=== PATIENT | female | born 1990 | race Caucasian/White ===

== ENCOUNTER 2020-07-27 01:47 | Emergency (ER) | payer OTHER ==
[~2020-07-27] VITALS: Ht 160 cm; Wt 78.1 kg
[2020-07-27 01:58] VITALS: Ht 160 cm; Wt 78.1 kg
[2020-07-27 04:51] VITALS: BP 118/67
== END 2020-07-27 04:51 | disposition home or self-care (01) ==
LOC: ED 01:47
DX: S59.901A Unspecified injury of right elbow, initial encounter (principal); G43.909 Migraine, unspecified, not intractable, without status migrainosus; Z88.6 Allergy status to analgesic agent; V49.49XA Driver injured in collision with other motor vehicles in traffic accident, initial encounter; Y93.I9 Activity, other involving external motion; Y92.488 Other paved roadways as the place of occurrence of the external cause; Y99.8 Other external cause status
CPT/HCPCS: Q0092

== ENCOUNTER 2020-07-30 14:57 | Emergency (ER) | payer OTHER ==
[~2020-07-30] VITALS: Ht 160 cm; Wt 78.5 kg
[2020-07-30 15:02] VITALS: Ht 160 cm; Wt 78.5 kg
[2020-07-30 16:50] VITALS: BP 115/75
== END 2020-07-30 16:50 | disposition home or self-care (01) ==
LOC: ED 14:57
DX: S43.401A Unspecified sprain of right shoulder joint, initial encounter (principal); G43.909 Migraine, unspecified, not intractable, without status migrainosus; M25.521 Pain in right elbow; Z88.6 Allergy status to analgesic agent; X58.XXXA Exposure to other specified factors, initial encounter; Y93.89 Activity, other specified; Y92.89 Other specified places as the place of occurrence of the external cause; Y99.8 Other external cause status